=== PATIENT | male | born 1945 | race Caucasian/White ===

== ENCOUNTER 2024-06-08 12:24 | Inpatient (IN) | payer OTHER ==
[2024-06-08 12:55] VITALS: BMI 17.7
[2024-06-08] MEDS ORDERED: POLYETHYLENE GLYCOL (HEALTHYLAX) 3350 17 GM PACKET PO PRN (13:03)
[2024-06-08] MEDS ORDERED: P-EPHED 60MG/TRIPROLIDI 2.5MG TABLET PO PRN (13:03)
[2024-06-08] MEDS ORDERED: MAGNESIUM HYDROX 2400MG/30ML ORAL SUSPENSION 30 ML CUP PO PRN (13:03)
[2024-06-08] MEDS ORDERED: IBUPROFEN 400 MG TABLET (FP) PO PRN (13:03)
[2024-06-08] MEDS ORDERED: NALOXONE (NARCAN) HCL 4 MG/0.1 ML SPRAY NS PRN (13:03)
[2024-06-08] MEDS ORDERED: LOPERAMIDE HCL 2 MG CAPSULE PO PRN (13:03)
[2024-06-08] MEDS ORDERED: guaiFENesin 600 MG TABLET.ER (FP) PO PRN (13:03)
[2024-06-08] MEDS ORDERED: BENZOCAINE/MENTHOL (CHLORASEPTIC ) LOZENGE MM PRN (13:03)
[2024-06-08] MEDS: ASPIRIN COATED 81 MG TABLET.EC PO SCH (13:45)
[2024-06-08] MEDS: BENZONATATE 200 MG CAPSULE PO PRN (17:45)
[2024-06-08] MEDS: THIAMINE 100 MG TABLET PO SCH (22:35)
[2024-06-08] MEDS: MELATONIN 5 MG TABLETS PO SCH (22:35)
[2024-06-09] MEDS: MAG HYDROX/AL HYDROX/SIMETH 30 ML UNIT-DOSE CUP PO PRN (03:21)
[2024-06-09] MEDS: BISMUTH SUBSALICYLATE 524 MG/30 ML PO PRN (05:36)
[2024-06-09] MEDS: PRENATAL VITAMINS W/ FOLIC ACID TABLET (FP) PO SCH (09:48)
[2024-06-09] MEDS ORDERED: BUPRENORPHINE HCL 150 MCG, BUPRENORPHINE HCL 75 MCG BC PRN (10:44)
[2024-06-09] MEDS: cloNIDine HCL 0.1 MG TABLET PO ONE (11:11)
[2024-06-09] MEDS: BUPRENORPHINE HCL 150 MCG, BUPRENORPHINE HCL 75 MCG BC ONE (11:11)
[2024-06-09 12:10] LABS: HEMATOCRIT 37.1 % (35.4-49); HEMOGLOBIN 12.2 GM/dL (11.7-16.9); MCH 27.8 pg (25.7-33.7); MEAN CELL VOLUME 84.1 fl (80-96); MEAN PLT VOLUME 8.4 fl (7.5-11.1); PLATELET COUNT 239 10^3/uL (134-434); RDW 13.7 % (11.9-15.9)
[2024-06-09 12:37] LABS: POTASSIUM 3.7 mmol/L (3.5-5.1)
[2024-06-09 12:49] LABS: ALBUMIN 3.7 g/dl (3.4-5.0); BILIRUBIN,TOTAL 0.4 mg/dL (0.2-1); TOT PROT 7.3 g/dl (6.4-8.2)
[2024-06-09 12:50] LABS: CREATININE 0.8 mg/dL (0.55-1.3)
[2024-06-09 12:52] LABS: CALCIUM 9.5 mg/dL (8.5-10.1)
[2024-06-09] MEDS ORDERED: ALBUTEROL SO4 HFA INHALER IH PRN (12:58)
[2024-06-09] MEDS ORDERED: PATIENT'S OWN MEDICATION (NON-FORMULARY) (Losartan/Hydrochlorothiazide [Losartan-Hctz 100- PO SCH (13:00)
[2024-06-09] MEDS: HYDROCHLOROTHIAZIDE 12.5 MG CAPSULE (FP) PO SCH (13:36)
[2024-06-09] MEDS: metoPROLOL SUCCINATE 25 MG TAB.SR.24H (FP) PO SCH (13:36)
[2024-06-09] MEDS: LOSARTAN POTASSIUM 50 MG TABLET PO SCH (13:36)
[2024-06-09] MEDS: BUDESONIDE/FORMETEROL FUMARATE 160/4.5 mcg INHALER IH SCH (13:37)
[2024-06-09] MEDS: ONDANSETRON *ODT* 4 MG TABLET SL PRN (18:10)
[2024-06-09] MEDS: cloNIDine HCL 0.1 MG TABLET PO PRN (20:08)
[2024-06-09] MEDS: ATORVASTATIN CA 40 MG TABLET (FP) PO SCH (22:28)
[2024-06-09] MEDS: diazePAM 5 MG TABLET PO PRN (22:33)
[2024-06-10] MEDS ORDERED: BUPRENORPHINE HCL 150 MCG, BUPRENORPHINE HCL 75 MCG BC PRN
[2024-06-10] MEDS: BUPRENORPHINE HCL 150 MCG, BUPRENORPHINE HCL 75 MCG BC SCH (05:38)
[2024-06-10] MEDS: IBUPROFEN 600 MG TABLET (FP) PO PRN (12:04)
[2024-06-10] MEDS: CHLORTHALIDONE 25 MG TABLET PO SCH (12:17)
[2024-06-10] MEDS: ACETAMINOPHEN 325 MG TABLET (FP) PO PRN (16:28)
[2024-06-10] MEDS: diazePAM 5 MG TABLET PO PRN (17:11)
[2024-06-11] MEDS: BUPRENORPHINE HCL 450 MCG FILM BC SCH (05:30)
[2024-06-12] MEDS: BUPRENORPHINE/NALOXONE 4 MG/1 MG FILM PACKET SL SCH (05:57)
[2024-06-12 06:26] VITALS: RESP 16
[2024-06-12 08:50] VITALS: BP 114/71; PULSE 91; TEMP 97.7
[2024-06-12] MEDS: NALOXONE (NYS OPIOID OVERDOSE PROGRAM) 4 MG/0.1 ML SPRAY NS SCH (10:29)
[2024-06-13] MEDS ORDERED: BUPRENORPHINE/NALOXONE 8 MG/2 MG FILM PACKET SL ONE (06:00)
== END 2024-06-12 11:11 | disposition home or self-care (01) | DRG 897 ==
LOC: YASAS 12:24 → Y6N 13:19
PROVIDERS: ADMIT Allergy & Immunology; ATTEND Allergy & Immunology
PROC: HZ2ZZZZ Detoxification Services for Substance Abuse Treatment (ICD-10-PCS; principal; 2024-06-08)
DX: F11.23 Opioid dependence with withdrawal (principal); E78.5 Hyperlipidemia, unspecified; I25.10 Atherosclerotic heart disease of native coronary artery without angina pectoris; I10 Essential (primary) hypertension; I25.2 Old myocardial infarction; J45.909 Unspecified asthma, uncomplicated; K21.9 Gastro-esophageal reflux disease without esophagitis; E63.9 Nutritional deficiency, unspecified; R10.13 Epigastric pain
CPT/HCPCS: 36415; 80053; 80305; 80307; 85027; 86780; 93005; 93010; Q0162